=== PATIENT | female | born 1995 | race Hispanic/Latino ===

== ENCOUNTER 2018-11-28 14:10 | Emergency (ER) | payer BC ==
[2018-11-28 14:22] VITALS: BP 159/88; PULSE 79; RESP 18; TEMP 98.2; O2SAT 100; BMI 23.8
== END 2018-11-28 15:32 | disposition left against medical advice (07) ==
LOC: ED 14:10
DX: Z02.89 Encounter for other administrative examinations (principal); T14.8XXA Other injury of unspecified body region, initial encounter